=== PATIENT | male | born 1945 | race Caucasian/White ===

== ENCOUNTER → 2017-03-07 | Day surgery (SDC) | payer OTHER ==
[~2017-03-07] MED LIST: AMLODIPINE-BEN1 EAC1 PO; ASPIRIN EC81 M1 PO; FENOFIBRATE134 MG PO; GRALISE1 EACH PO; LIPITOR20 MG PO; PERCOCET 5/321 UDTAB PO; PERCOCET 51 UDTAB 5/ DOB; VALACYCLOVIR1000 MG PO; XANAX1 MG PO; ZIAC 10-6.25 M1 EACH PO
--- NOTE | ~2017-03-07 | OR ---
Unit #: [id number] #: [id number] Patient: IESHA OWENS [id number] [facility]. [place], [place] [address] [id number] MR#: [id number] NAME: IESHA OWENS. ROOM: Date of Procedure: 03/07/2017 Admission Date: 03/07/2017 Surgeon: Antonio Hammer M.D. : 1945 Attending Physician: Antonio Hammer M.D. Primary Care Physician: Jeremie Noyola M.D. OPERATIVE REPORT PRIMARY CARE PHYSICIAN Jeremie Noyola M.D. PREOPERATIVE DIAGNOSIS Colorectal cancer screening in an average-risk patient. Incidentally, the patient also had positive Cologuard study. He has never had a colonoscopy in the past. PROCEDURE PERFORMED Colonoscopy up to cecum and terminal ileum with excellent preparation and good visualization. POSTOPERATIVE DIAGNOSES 1. Small internal hemorrhoids. 2. Scant sigmoid diverticulosis. 3. Rest of the examination up to cecum was normal. The quality of prep was excellent. No polyps were present or seen. RECOMMENDATIONS No further evaluation is indicated in view of patient's age of 71 and completely normal examination with good prep. He was discharged after reassurance. SEDATION USED MAC. DESCRIPTION OF PROCEDURE Following detailed explanation of the potential risks and complications of a colonoscopy, namely perforation, bleeding, and complications related to sedation, the patient was brought to GI lab and laid in the left lateral decubitus position. A digital rectal examination was performed, which was normal. Lubricated tip of the Olympus video colonoscope was inserted through the anus and advanced under direct vision. The scope was advanced and passed up to sigmoid into descending colon. Scant small diverticula were noted in this area. The scope tip was then navigated all the way up to cecum with visualization of the ileocecal valve and the appendiceal orifice. Preparation was excellent with good visualization and photodocumentation was obtained. Last few inches of the terminal ileum also visualized after intubation of the ileocecal valve and appeared normal. Successive segments of the colonic mucosa were examined upon withdrawal. The patient had scant diverticula in the sigmoid colon and small internal hemorrhoids. However, rest of the mucosa was completely Unit #: [id number] #: [id number] Patient: IESHA OWENS normal. No polyps were seen. The scope was then withdrawn. The patient returned to the recovery area. He tolerated the procedure without any postprocedure complications. Dictated by... Alfie Terrell/hamilton TD: 03/07/2017 11:50 JOB #: [id number] OPERATIVE REPORT Page 1 of 1 X Antonio Hammer MD X PROCEDURE OPERATIVE NOTE
== END | disposition home or self-care (01) ==
LOC: COPS 08:18
DX: K57.30 Diverticulosis of large intestine without perforation or abscess without bleeding (principal); K64.8 Other hemorrhoids; I25.2 Old myocardial infarction; I10 Essential (primary) hypertension; Z79.899 Other long term (current) drug therapy; Z79.82 Long term (current) use of aspirin; Z98.890 Other specified postprocedural states
CPT/HCPCS: J2250